=== PATIENT | female | born 1985 | race Caucasian/White ===

== ENCOUNTER 2018-03-20 07:55 | Inpatient (IN) ==
[2018-03-20] MEDS ORDERED: CALCIUM CARBONATE 500 MG (TUMS) CHEWABLE TABLET PO PRN (09:46)
[2018-03-20] MEDS ORDERED: ONDANSETRON 4 MG/2 ML VIAL IVP PRN (09:46)
[2018-03-20] MEDS ORDERED: LIDOCAINE W/ SODIUM BICARB 0.5 ML SYR SUBD PRN (09:46)
[2018-03-20] MEDS ORDERED: DOCUSATE 100 MG CAPSULE PO PRN (09:46)
[2018-03-20] MEDS ORDERED: ACETAMINOPHEN 325 MG TABLET PO PRN (09:46)
[2018-03-20 10:58] LABS: BASOPHILS # (AUTO) 0.02 10*3/UL; BASOPHILS % (AUTO) 0.4 % (0-1); EOSINOPHILS # (AUTO) 0.23 10*3/UL; EOSINOPHILS % (AUTO) 4.4 % (0-8); Hematocrit [HCT] 46.9 % (37.0-47.0); Hemoglobin [HGB] 15.7 g/dL (12.0-16.0); LYMPHOCYTES # (AUTO) 1.48 10*3/uL; MEAN CORPUSCULAR HEMOGLOBIN 31.9 PG (27-31); MEAN CORPUSCULAR HGB CONC 33.5 g/dL (33-37); MEAN CORPUSCULAR VOLUME 95.3 FL (81-99); MEAN PLATELET VOLUME 10.3 FL (7.4-12.2); MONOCYTES # (AUTO) 0.41 10*3/UL (0.3-0.8); MONOCYTES % (AUTO) 7.8 % (5-15); NEUTROPHILS # (AUTO) 3.11 10*3/UL; NEUTROPHILS % (AUTO) 59.2 % (50-80); RED BLOOD COUNT 4.92 10^6/uL (4.20-5.40)
[2018-03-20] MEDS: D5-1/2NS + 20mEq KCL 1,000 ML PRIMARY IV SCH ×2 (11:03→19:29)
[2018-03-20] MEDS: HYDROmorphone 2 MG/1 ML IVP PRN ×3 (11:08→21:29)
[2018-03-20 11:09] LABS: BLOOD UREA NITROGEN 10 mg/dL (7-22); BUN/CREATININE RATIO 14.28 (6-20); SERUM ALBUMIN 4.6 g/dL (3.5-4.8)
[2018-03-20 11:11] LABS: PLATELET MORPHOLOGY COMMENT NORMAL MORPHOLOGY (NORM); RBC MORPHOLOGY COMMENT NORMAL MORPHOLOGY (NORM); WBC MORPHOLOGY COMMENT NORMAL MORPHOLOGY (NORM)
--- NOTE | 2018-03-20 12:18 | PDOC ---
HPI - History of Present Illness Date of Service: 03/20/18 Time of Service: 12:12 Chief Complaint: Abdominal pain History of Present Illness: This very pleasant 32-year-old female who is residing in the shelter in [place], [place], who is referred to us from Dr. Carey, with a diagnosis of pancreatitis. The patient reports to me that she started experiencing abdominal pain when she was in [facility] about 5-7 months ago or so. She stated that episodes were intermittent and that her pain did not last very long. She denied any fever. She has intermittent constipation and diarrhea with this. Some nausea but no vomiting. She states that her symptoms are becoming more frequent and over the last few days she was seen in the [facility]. She states that she was given a couple of white pills and that seemed to help her feel better. She was then apparently found doubled over on the floor in writing pain. Laboratory workup done in [place] showed an ALT and AST in the 400s. She had a total bilirubin that was elevated and a lipase that was over 2000. There were no imaging studies done. The patient was transferred to us for further care. On repeat labs here lipase appears normal now but ALT and AST are still slightly elevated. Total bilirubin does appear normal. She does not drink alcohol and denies any drug use. She still has her gallbladder. She states that the pain does radiate around her back to just beneath her shoulder blade on the right. She is not sure if there is any association with meals or not. She stated that she stopped Celexa 2 weeks ago. Past Medical History Medical History: 1. Depression, recently stopped Celexa Surgical History: 1. Tubal ligation. 2. D&C. 3. Tonsillectomy and adenoidectomy Pertinent Family History: Patient is adopted but she thinks her biologic father might have had diabetes. Past Social History: Mr. pitt. Does not drink alcohol. Denies drug use. Currently in shelter in [place], [place]. She states that she is and has 3 healthy children. Tobacco Use: Former Smoker In the Past 12 Months, Have Used or Abuse Any of the Following Substance: Methamphetamines (Apparently a history of methamphetamine abuse) Alcohol Use: None Medication / Allergies Home Medications: Home Medications 3 Medication Instructions Recorded Confirmed Type NK 03/20/18 03/20/18 History Allergies/Adverse Reactions: Allergies 3 Allergy/AdvReac Type Severity Reaction Status Date / Time No Known Allergies Allergy Unverified 03/20/18 12:17 Review of Systems - Review of Systems All Systems: Reviewed & No Additional Complaints Except as Stated (I did a 12 point review systems and it is negative other than that discussed in history of present illness.) Exam - Vitals Vital Signs: Vital Signs Temperature 98.6 F Temperature Source Oral Pulse Rate [Pulse Oximeter] 91 Respiratory Rate 20 Blood Pressure [Left Arm] 120/78 Pulse Ox 93 Oxygen Delivery Method Room Air Height 5 ft Weight 171 lb 6.4 oz - General General Appearance: No Acute Distress, Cooperative - Head Head Exam: Normal Inspection, Normocephalic, Atraumatic - Eye Eye Exam: POSITIVE: No Scleral Icterus - ENT ENT Exam: POSITIVE: Mucous Membranes Moist - Neck Neck Exam: Normal Inspection, No Tenderness, No Lymphadenopathy, No Thyromegaly , JVP is not Raised - Respiratory Respiratory Exam: POSITIVE: Clear to Auscultation - Bilaterally, Breathing Non Labored, Normal to Percussion and Palpation - Cardiovascular Cardiovascular Exam: POSITIVE: RRR, No Murmur, No Clicks, No Gallops, No Rubs, No JVD - GI/Abdominal GI/Abdominal Exam: POSITIVE: Normal Bowel Sounds, Non Distended, Soft Additional GI/Abdominal Exam Details: She does voice some tenderness in the right upper quadrant and midepigastric region. - Rectal Rectal Exam: POSITIVE: Deferred - External Exam: POSITIVE: Deferred Exam: POSITIVE: Deferred - Extremities Extremities Exam: POSITIVE: No Clubbing Present, No Edema Present, No Cyanosis Present - Back Back Exam: POSITIVE: No CVA Tenderness - Neurological Neurological Exam: POSITIVE: Alert, Oriented x 3, Normal Gait, No Facial Droop, Speech Intact / Clear, Moves All Extremities Equally - Psychiatric Psychiatric Exam: POSITIVE: Normal Affect, Normal Mood Results - Labs CBC and BMP: 03/20/18 10:30 03/20/18 10:50 Additional Lab Results: Laboratory Results 03/20/18 03/20/18 03/20/18 Range/Units 10:30 10:50 10:50 WBC 5.25 (4.8-10.8) 10^3/uL RBC 4.92 (4.20-5.40) 10^6/uL Hgb 15.7 (12.0-16.0) g/dL Hct 46.9 (37.0-47.0) % MCV 95.3 (81-99) FL MCH 31.9 H (27-31) PG MCHC 33.5 (33-37) g/dL RDW Std Deviation 42.2 (39-50) fL RDW Coeff of Bandar 12.4 (11.5-14.5) % Plt Count 256 (140-350) 10*3/uL MPV 10.3 (7.4-12.2) FL Immature Gran % (Auto) 0 (0-5) % Neut % (Auto) 59.2 (50-80) % Lymph % (Auto) 28.2 (10-50) % [place] % (Auto) 7.8 (5-15) % Eos % (Auto) 4.4 (0-8) % Baso % (Auto) 0.4 (0-1) % Immature Gran # (Auto) 0 10*3/UL Neut # (Auto) 3.11 10*3/UL Lymph # (Auto) 1.48 10*3/uL [place] # (Auto) 0.41 (0.3-0.8) 10*3/UL Eos # (Auto) 0.23 10*3/UL Baso # (Auto) 0.02 10*3/UL WBC Morphology Comment Normal morphology (NORM) Plt Morphology Comment Normal morphology (NORM) RBC Morph Comment Normal morphology (NORM) PT 10.2 (9.7-11.4) secs INR 0.99 (0.00-5.90) N/A Sodium 144 (135-145) meq/L Potassium 4.2 (3.8-5.2) meq/L Chloride 111 (98-112) meq/L Carbon Dioxide 25 (23-33) meq/L Anion Gap 8 (5-20) BUN 10 (7-22) mg/dL Creatinine 0.7 (0.50-1.20) mg/dL Estimated GFR > 60 (>60 ml/min/1.73m(2)) BUN/Creatinine Ratio 14.28 (6-20) Glucose 104 (78-110) mg/dL Calculated Osmolality 296.0 H (267-292) mOsm/kg Calcium 9.3 (8.7-10.7) mg/dL Total Bilirubin 0.3 (0.3-1.2) mg/dL AST 90 H (8-39) IU/L ALT 288 H (9-52) IU/L Alkaline Phosphatase 77 (38-126) IU/L Total Protein 7.6 (6.1-8.0) g/dL Albumin 4.6 (3.5-4.8) g/dL Globulin 3.0 (2.50-4.10) g/dL Albumin/Globulin Ratio 1.50 (1.3-2.0) mg/g Lipase (23-300) IU/L 03/20/18 Range/Units 10:50 WBC (4.8-10.8) 10^3/uL RBC (4.20-5.40) 10^6/uL Hgb (12.0-16.0) g/dL Hct (37.0-47.0) % MCV (81-99) FL MCH (27-31) PG MCHC (33-37) g/dL RDW Std Deviation (39-50) fL RDW Coeff of Bandar (11.5-14.5) % Plt Count (140-350) 10*3/uL MPV (7.4-12.2) FL Immature Gran % (Auto) (0-5) % Neut % (Auto) (50-80) % Lymph % (Auto) (10-50) % [place] % (Auto) (5-15) % Eos % (Auto) (0-8) % Baso % (Auto) (0-1) % Immature Gran # (Auto) 10*3/UL Neut # (Auto) 10*3/UL Lymph # (Auto) 10*3/uL [place] # (Auto) (0.3-0.8) 10*3/UL Eos # (Auto) 10*3/UL Baso # (Auto) 10*3/UL WBC Morphology Comment (NORM) Plt Morphology Comment (NORM) RBC Morph Comment (NORM) PT (9.7-11.4) secs INR (0.00-5.90) N/A Sodium (135-145) meq/L Potassium (3.8-5.2) meq/L Chloride (98-112) meq/L Carbon Dioxide (23-33) meq/L Anion Gap (5-20) BUN (7-22) mg/dL Creatinine (0.50-1.20) mg/dL Estimated GFR (>60 ml/min/1.73m(2)) BUN/Creatinine Ratio (6-20) Glucose (78-110) mg/dL Calculated Osmolality (267-292) mOsm/kg Calcium (8.7-10.7) mg/dL Total Bilirubin (0.3-1.2) mg/dL AST (8-39) IU/L ALT (9-52) IU/L Alkaline Phosphatase (38-126) IU/L Total Protein (6.1-8.0) g/dL Albumin (3.5-4.8) g/dL Globulin (2.50-4.10) g/dL Albumin/Globulin Ratio (1.3-2.0) mg/g Lipase 231 (23-300) IU/L In [place], the patient had a lipase of 2321, an alkaline phosphatase of 66, a total bilirubin of 1.2, a lactose dehydrogenase of 499, an AST of 481, and ALT is 314, and a gamma GTP of 98. Her cholesterol panel was normal. Creatinine was normal. White blood cell count was normal. Thyroid functions were normal. - Imaging Status: Image Pending (I have ordered an ultrasound of the abdomen and also a CT scan of the abdomen and pelvis with contrast to look for pancreatitis and possible gallstone or common bile duct elevation.) Assessment and Plan - Patient Problems (1) Pancreatitis Current Visit: Yes Status: Acute Code(s): K85.90 - Acute pancreatitis without necrosis or infection, unspecified Qualifiers: Chronicity: acute Pancreatitis type: biliary Acute pancreatitis complication: unspecified Qualified Code(s): K85.10 - Biliary acute pancreatitis without necrosis or infection (2) Psychiatric disorder Current Visit: Yes Status: Acute Code(s): F99 - Mental disorder, not otherwise specified - Assessment / Plan Additional Assessment/Plan Details: Admit the patient. Keep nothing by mouth. IV fluids, IV narcotics for pain and antiemetics. I think ultimately that this is probably a gallstone pancreatitis. Certainly an SSRI could cause pancreatitis but it is not something that I typically see in my practice so, things being common and with elevated liver enzymes, I think that this is more likely related to gallstone pancreatitis. We'll get an ultrasound to look for gallstones and also, common bile duct dilation. A CT scan of the abdomen and pelvis with contrast to look for pancreatitis physically as well as biochemically. Check labs in a.m., and if lipase still remains normal, then may need to consider surgery consult to evaluate further about possible cholecystectomy. If there is any evidence of elevated common bile duct dilation, then we would need to consider transfer to facility for possible ERCP but the timing of that could be related to how lipase looks, patient's symptoms, other lab and diagnostic values. Certainly based on lab profile done yesterday in [place] and lab profile now, it would appear that there could've been a stone that passed already. If a cholecystectomy needs to be done, we need to discuss with surgery to consider doing an intraoperative cholangiogram as well. Discussed with patient and law enforcement agent present in detail.
--- NOTE | 2018-03-20 15:37 | DI ---
US Abdomen Complete,03/20/2018 9:48 AM: Clinical History: Pancreatitis Previous Exam: None available. Findings: Multiple grayscale and color Doppler sonographic images are obtained through the abdomen, and demonst rate normal hepatic parenchyma. The gallbladder contains multiple shadowing stones. Gallbladder wall is thickened measuring 5 mm. The re is no pericholecystic fluid. The pancreas is not well seen. Right kidney measures 9.3 cm in length without hydronephrosis nor nephrolithiasis. The left kidney is also normal measuring 9.6 cm in length. The spleen is within normal limits. Impression: 1. Cholelithiasis. 2. Pancreas not well seen due to overlying shadowing from gallstones. Cannot rule out the possibility of ductal dilation.
--- NOTE | 2018-03-20 15:41 | DI ---
CT Abdomen/Pelvis W Contrast,03/20/2018 9:49 AM: Clinical History: Pancreatitis, suspected gallstone pancreatitis. Previous Exam: None at this facility. Findings: Multiple helically acquired CT images are obtained through the abdomen and pelvis following the intra venous administration of contrast (75 cc of Isovue 300. The lung bases are clear. Comment: The patient stated she is . Potential risks to the fetus w ere explained to the patient. She consented to proceed with the exam. Additional shielding precaution s were utilized. Is unremarkable. Multiple gallstones are seen within the gallbladder. The pancreas is grossly normal without evidence of ductal dilation. The spleen, adrenals and kidneys are also unremarkable. The appendix is normal. The urinary bladder is unremarkable. The uterus is enlarged and irregular. Th e left kidney is within normal limits for patient's age. There is no peripancreatic fat stranding. There is no evidence of abscess nor pseudocyst. Impression: Cholelithiasis otherwise unremarkable.
[2018-03-20] MEDS ORDERED: Ertapenem Inj 1 GM in Sodium Chloride 0.9% 100 ML IV SCH (18:00)
[2018-03-20] MEDS ORDERED: metroNIDAZOLE 500mg (Premix) 500 MG/100 ML BAG IV SCH (18:00)
[2018-03-20] MEDS ORDERED: cefTRIAXone Inj 2 GM in Sodium Chloride 0.9% 100 ML IV SCH (18:00)
[2018-03-21] MEDS: D5-1/2NS + 20mEq KCL 1,000 ML PRIMARY IV SCH (03:13)
[2018-03-21 03:39] LABS: BASOPHILS # (AUTO) 0.02 10*3/UL; BASOPHILS % (AUTO) 0.4 % (0-1); EOSINOPHILS # (AUTO) 0.24 10*3/UL; EOSINOPHILS % (AUTO) 5.2 % (0-8); Hematocrit [HCT] 40.5 % (37.0-47.0); Hemoglobin [HGB] 13.4 g/dL (12.0-16.0); LYMPHOCYTES # (AUTO) 1.59 10*3/uL; MEAN CORPUSCULAR HGB CONC 33.1 g/dL (33-37); MEAN CORPUSCULAR VOLUME 96.7 FL (81-99); MEAN PLATELET VOLUME 10.5 FL (7.4-12.2); MONOCYTES # (AUTO) 0.28 10*3/UL (0.3-0.8); MONOCYTES % (AUTO) 6.1 % (5-15); NEUTROPHILS # (AUTO) 2.46 10*3/UL; NEUTROPHILS % (AUTO) 53.5 % (50-80); PLATELET MORPHOLOGY COMMENT NORMAL MORPHOLOGY (NORM); RBC MORPHOLOGY COMMENT NORMAL MORPHOLOGY (NORM); RED BLOOD COUNT 4.19 10^6/uL (4.20-5.40); WBC MORPHOLOGY COMMENT NORMAL MORPHOLOGY (NORM)
[2018-03-21 06:14] LABS: BLOOD UREA NITROGEN 5 mg/dL (7-22); BUN/CREATININE RATIO 8.33 (6-20); LIPASE 65 IU/L (23-300); SERUM ALBUMIN 3.4 g/dL (3.5-4.8)
[2018-03-21] MEDS: HYDROmorphone 2 MG/1 ML IVP PRN (07:25)
--- NOTE | 2018-03-21 09:27 | CONSULT ---
Consult Note - Consult Consult Date: 03/21/18 Reason for Consult: PreOp Consulation : General Surgery Requesting Physician: Dr. Ibrahim Primary Care Provider: NONE NONE - History of Present Illness History of Present Illness: The patient is a 32-year-old female who is an incarcerated prisoner at [facility]. I am asked to see her for gallstones and recent gallstone pancreatitis. She reports a 5-7 month history of intermittent right upper quadrant abdominal pain. The pain radiates around to her back. She has intermittent nausea and vomiting. She feels gassy and bloated. She has fatty food intolerance. Apparently on 03/18/2018, she was found duobled over in pain. Some lab work was drawn but the results were not available until yesterday. She felt like she was having birthing contractions in her right upper quadrant. Her lipase was greater than 2000. Her AST and ALT were both in the 400 range. Her bilirubin was 1.2. Her white count was normal. Her alkaline phosphatase was normal. On Saturday she saw the physician [facility]. The lab work was not back. She was feeling better. Yesterday morning the lab work returned and she was transferred here for evaluation. Since being here she had a CT scan of her abdomen and pelvis. It shows multiple gallstones. No evidence of pancreatitis or peripancreatic stranding. Subsequent ultrasound showed multiple gallstones. There is some thickening of the gallbladder wall at 5 mm. She was placed on antibiotics. I was called last evening to see her this morning for the same. Her lipase is normal this morning. Her AST and ALT are slightly elevated. Her bilirubin is normal. Her white count is normal. Her alkaline phosphatase is normal. This is all consistent with resolving gallstone pancreatitis. I believe she passed a gallstone. This morning she is a little sore. She is thirsty. She is back to about her baseline. She reports these attacks of biliary colic are happening more frequently and becoming more severe. The options as I see them are to send her back to senior care and schedule this as an outpatient or go ahead and proceed with cholecystectomy today. I spoke with the senior care nurse and she is checking with corporate to see which way to proceed. She will let me know and the final decision regarding surgery will be made following approval. Review of Systems - Gastrointestinal Gastrointestinal / Abdominal: REPORTS: Nausea, Vomiting, Abdominal Pain, Bloating, See HPI Past Medical History Medical History: 1. Depression, recently stopped Celexa Surgical History: 1. Tubal ligation. 2. D&C. 3. Tonsillectomy and adenoidectomy Pertinent Family History: Patient is adopted but she thinks her biologic father might have had diabetes. Past Social History: Mr. ramirez Does not drink alcohol. Denies drug use. Currently in senior care in [place], [place]. She states that she is and has 3 healthy children. Tobacco Use: Former Smoker In the Past 12 Months, Have Used or Abuse Any of the Following Substance: Methamphetamines (Apparently a history of methamphetamine abuse) Alcohol Use: None Medication / Allergies Home Medications: Home Medications 3 Medication Instructions Recorded Confirmed Type NK 03/20/18 03/20/18 History Allergies/Adverse Reactions: Allergies 3 Allergy/AdvReac Type Severity Reaction Status Date / Time No Known Allergies Allergy Unverified 03/20/18 12:17 Results - Labs CBC and BMP: 03/21/18 03:20 03/21/18 03:20 - Imaging Status: Image Reviewed by Me, Report Reviewed by Me Exam - Vitals Vital Signs: Vital Signs Temperature 98.1 F Temperature Source Temporal Artery Scan Pulse Rate [Pulse Oximeter] 82 Respiratory Rate 18 Blood Pressure [Left Arm] 100/61 Pulse Ox 98 Oxygen Flow Rate 1 Oxygen Delivery Method Room Air Height 5 ft Weight 176 lb 6.4 oz - General General Appearance: No Acute Distress, Cooperative - Respiratory Respiratory Exam: POSITIVE: Clear to Auscultation - Bilaterally, Breathing Non Labored - Cardiovascular Cardiovascular Exam: POSITIVE: RRR, No Murmur - GI/Abdominal GI/Abdominal Exam: POSITIVE: Normal Bowel Sounds, Non Distended, Soft, Positive for RUQ Pain (Mild, to deep palpation.) - Neurological Neurological Exam: POSITIVE: Alert, Oriented x 3 - Psychiatric Psychiatric Exam: POSITIVE: Normal Affect, Normal Mood Assessment and Plan - Patient Problems (1) Cholelithiasis with chronic cholecystitis Current Visit: Yes Status: Acute Priority: High Onset Date: Unknown Comment: Patient has had problems for the last 5-[address] and ultrasound both showed gallstones. There is some gallbladder wall thickening. She has been given appropriate antibiotics. Patient needs a laparoscopic cholecystectomy with intraoperative cholangiogram. The possibility of a postoperative ERCP has been discussed.The procedure has been discussed with the patient in complete yet simple terms including benefits, risks, and alternatives. All questions have been answered. Informed consent has been obtained. I have checked with the senior care for authorization. They will decide whether to proceed today or bring her back as an outpatient in the near future. Either way would be appropriate at this time. Code(s): K80.10 - Calculus of gallbladder with chronic cholecystitis without obstruction (2) Acute gallstone pancreatitis Current Visit: Yes Status: Acute Priority: High Onset Date: 03/18/18 Comment: No evidence of acute pancreatitis on CT scan. Labs have essentially returned to normal with some mild elevation of AST and ALT. Her gallstone pancreatitis has resolved at this time. There is some minimal risk of reactivating her pancreatitis with intraoperative cholangiogram. If we proceed with surgery today would recommend observation overnight, recheck her labs in the morning, and if they're fine she can return to the senior care for follow-up care. Code(s): K85.10 - Biliary acute pancreatitis without necrosis or infection
[2018-03-21] MEDS ORDERED: LIDOCAINE W/ SODIUM BICARB 0.5 ML SYR SUBD PRN (09:49)
[2018-03-21] MEDS ORDERED: Nasal Sanitizer POPSWAB ampule 3 AMP (Nozin) PREOP DOSE ENOS SCH (10:00)
[2018-03-21] MEDS ORDERED: Lactated Ringers 1,000 ML PRIMARY IV SCH ×2 (10:00→16:30)
--- NOTE | 2018-03-21 13:10 | PDOC(PROG) ---
Date of Service: 03/21/18 Time of Service: 12:10 Interval History: Feels much better. I spoke with Dr. Louis whom we consulted. He plans to take patient down for cholecystectomy. He got the approval from the detention to do so. I would agree with this. No nausea or vomiting today and no chest pain. Breathing comfortably. Objective : Data - Labs CBC and BMP: 03/21/18 03:20 03/21/18 03:20 Additional Lab Results: 03/21/18 03:20 Total Bilirubin 0.3 AST 45 H ALT 192 H Alkaline Phosphatase 58 Total Protein 6.3 Albumin 3.4 L Globulin 2.9 Lipase 65 - Imaging CT Scan Status: Report Reviewed by Me (CT scan of abdomen and pelvis showed peripancreatic fluid but no changes in the pancreas.) Ultrasound Status: Report Reviewed by Me (The ultrasound of the gallbladder and abdomen showed gallbladder wall thickening a 5 mm, cholelithiasis, but the pancreas was not well visualized. It is unclear if there is any common bile duct obstruction.) Objective : Exam - General General Appearance: No Acute Distress, Cooperative Additional General Exam Details: Vital Signs - Last Taken Temperature 99.5 F 03/21/18 13:00 Pulse Rate 79 03/21/18 13:00 Respiratory Rate 16 03/21/18 13:00 Blood Pressure 108/61 03/21/18 13:00 Pulse Ox 100 03/21/18 13:00 - Eye Eye Exam: No Scleral Icterus - ENT ENT Exam: Mucous Membranes Moist - Respiratory Respiratory Exam: Clear to Auscultation - Bilaterally, Breathing Non Labored - Cardiovascular Cardiovascular Exam: RRR, No Murmur, No Clicks, No Gallops, No Rubs, No JVD - GI/Abdominal GI/Abdominal Exam: Normal Bowel Sounds, Non Tender, Non Distended, Soft - Extremities Extremities Exam: No Clubbing Present, No Edema Present, No Cyanosis Present - Neurological Neurological Exam: Alert, Oriented x 3, No Facial Droop, Speech Intact / Clear, Moves All Extremities Equally Assessment and Plan - Patient Problems (1) Pancreatitis Current Visit: Yes Status: Acute Code(s): K85.90 - Acute pancreatitis without necrosis or infection, unspecified Qualifiers: Chronicity: acute Pancreatitis type: biliary Acute pancreatitis complication: unspecified Qualified Code(s): K85.10 - Biliary acute pancreatitis without necrosis or infection (2) Cholelithiasis with chronic cholecystitis Current Visit: Yes Status: Acute Priority: High Onset Date: Unknown Code (s): K80.10 - Calculus of gallbladder with chronic cholecystitis without obstruction Qualifiers: Cholelithiasis location: gallbladder Biliary obstruction: without biliary obstruction Qualified Code(s): K80.10 - Calculus of gallbladder with chronic cholecystitis without obstruction (3) Psychiatric disorder Current Visit: Yes Status: Acute Code(s): F99 - Mental disorder, not otherwise specified - Assessment / Plan Additional Assessment/Plan Details: I agree with Dr. Louis, I do think the patient needs cholecystectomy. From hospitalist perspective, the patient can proceed to the operating room with postoperative risk stratification as appropriate. We had a dose of Invanz given yesterday, particularly with the gallbladder wall thickening. She was afebrile and white cell count was normal, but with gallbladder wall thickening we have to assume that this was likely acute cholecystitis or possible chronic cholecystitis. We'll wait to see surgical report, but hopeful to stop antibiotics postoperatively. Labs in a.m. In speaking with Dr. Louis, I agree that an intraoperative cholangiogram should be done and he plans on doing this. If there is any evidence of obstruction we' ll have to arrange for a postoperative ERCP. From the pancreatitis standpoint, this appears resolved now. I think postoperatively when okay with surgery, we should advance the diet.
[2018-03-21] MEDS ORDERED: ROCURONIUM 10 MG/1 ML - 5 ML VIAL IVP ONE (13:20)
[2018-03-21] MEDS ORDERED: KETAMINE 100 MG/1 ML - 5 ML ONE (13:21)
[2018-03-21] MEDS ORDERED: MIDAZOLAM 5 MG/1 ML ONE (13:21)
[2018-03-21] MEDS ORDERED: fentaNYL Inj 100 MCG/2 ML VIAL ONE ×3 (13:21→15:33)
[2018-03-21] MEDS ORDERED: LIDOCAINE MPF 2% - 5 ML (20 MG/1 ML) ONE (13:24)
[2018-03-21] MEDS ORDERED: DEXAMETHASONE PF 10 MG/1 ML VIAL ONE (13:29)
[2018-03-21] MEDS ORDERED: KETOROLAC 30 MG/1 ML VIAL ONE (13:29)
[2018-03-21] MEDS ORDERED: Iothalamate Meglumine 30 ML VIAL IV ONE (14:13)
[2018-03-21] MEDS ORDERED: BUPIVACAINE 0.25% W/ EPI - 10 ML VIAL ONE (14:13)
[2018-03-21] MEDS ORDERED: Sodium Chloride 0.9% vial 50 ML ONE (14:14)
[2018-03-21] MEDS ORDERED: Sodium Chloride 0.9% 0 ML PRIMARY IV ONE (14:30)
[2018-03-21] MEDS ORDERED: ONDANSETRON 4 MG/2 ML VIAL ONE (14:51)
[2018-03-21] MEDS ORDERED: Lactated Ringers 1,000 ML PRIMARY IV ONE (14:51)
[2018-03-21] MEDS ORDERED: PROPOFOL 10 MG/1 ML (200 MG/20 ML) VIAL IV ONE (14:56)
[2018-03-21] MEDS ORDERED: Lactated Ringers 2,000 ML PRIMARY IV ONE (15:14)
--- NOTE | 2018-03-21 15:53 | DCSUMMARY ---
Hospitalization Summary Admit Date: 03/20/2018 Discharge Date: 03/21/18 Primary Diagnosis:: cholecystitis with common bile duct obstruction Secondary Diagnosis:: Status post laparoscopic cholecystectomy Hospital Course: This very pleasant 32-year-old female who came in with acute gallstone pancreatitis. She was transferred from the [facility]. When she arrived here , her labs originally had been done on 03/18/2018 and her lipase of over 2000 had normalized by admission here yesterday. Her symptoms included nausea, vomiting, abdominal pain. She was admitted, placed on IV fluids, kept nothing by mouth, I got an ultrasound and a CT scan which showed gallbladder wall thickening. I consulted surgery and we placed her on Invanz. Her lipase was normal today and she went for laparoscopic cholecystectomy. She had an intraoperative cholangiogram. She was found to have stones and a dilated common bile duct and will now need to go for ERCP. Dr. Louis has graciously already made calls for referral of this speaking to the hospitalist and the electrical project manager in [place], [place], for transfer. Postoperatively, the patient is otherwise stabilized. She had minimal symptoms today. Her only other medical history is that she has a psychiatric disorder which was not an issue during the hospital stay. Assessment and Plan: 1. As per discharge assessments noted 2. Disposition: Patient will be discharged to [facility] 3. Condition on discharge, stable and improved, but due to common bile duct obstruction and stone presence, her condition certainly could deteriorate but she has been stabilized to the best of our ability to do so and I deemed her stable for transport. 4. Diet: Nothing by mouth 5. Activities: As per [facility] 6. Follow-Up: 1. Dr. Carey post hospital stay back at the [facility] 2. 7. Medications at the Time of Discharge: Active Medications Generic Name Dose Route Start Last Admin Trade Name Freq PRN Reason Stop Dose Admin Lactated Ringer's 1,000 mls @ 100 mls/hr 03/21/18 10:00 03/21/18 10:55 Lr PRIMARY IV 100 mls/hr .Q10H AURA Administration Lidocaine HCl 0.5 ml 03/21/18 09:49 Lidocaine Buffered Inj SUBD ONCE PRN IV Starts She has been on Dilaudid, Zofran for pain here. Tylenol when necessary. All these medications were when necessary. Exam - Vitals Vital Signs: Vital Signs Temperature 99.5 F Temperature Source Temporal Artery Scan Pulse Rate [Pulse Oximeter] 75 Pulse Rate 79 Respiratory Rate 16 Blood Pressure [Left Arm] 107/65 Blood Pressure 108/61 Pulse Ox 100 Oxygen Flow Rate ra Oxygen Delivery Method Room Air Height 5 ft Weight 171 lb - General General Appearance: No Acute Distress, Cooperative - Eye Eye Exam: POSITIVE: No Scleral Icterus - ENT ENT Exam: POSITIVE: Mucous Membranes Moist - Respiratory Respiratory Exam: POSITIVE: Clear to Auscultation - Bilaterally, Breathing Non Labored - Cardiovascular Cardiovascular Exam: POSITIVE: RRR, No Murmur, No Clicks, No Gallops, No Rubs, No JVD - GI/Abdominal GI/Abdominal Exam: POSITIVE: Normal Bowel Sounds, Non Tender, Non Distended, Soft - Extremities Extremities Exam: POSITIVE: No Clubbing Present, No Edema Present, No Cyanosis Present - Neurological Neurological Exam: POSITIVE: Alert, Oriented x 3, No Facial Droop, Speech Intact / Clear, Moves All Extremities Equally Data Peritnent Studies: Laboratory Results 03/21/18 03/21/18 Range/Units 03:20 03:20 WBC 4.60 L (4.8-10.8) 10^3/uL RBC 4.19 L (4.20-5.40) 10^6/uL Hgb 13.4 (12.0-16.0) g/dL Hct 40.5 (37.0-47.0) % MCV 96.7 (81-99) FL MCH 32.0 H (27-31) PG MCHC 33.1 (33-37) g/dL RDW Std Deviation 41.0 (39-50) fL RDW Coeff of Bandar 12.1 (11.5-14.5) % Plt Count 242 (140-350) 10*3/uL MPV 10.5 (7.4-12.2) FL Immature Gran % (Auto) 0.2 (0-5) % Neut % (Auto) 53.5 (50-80) % Lymph % (Auto) 34.6 (10-50) % Cocke % (Auto) 6.1 (5-15) % Eos % (Auto) 5.2 (0-8) % Baso % (Auto) 0.4 (0-1) % Immature Gran # (Auto) 0.01 10*3/UL Neut # (Auto) 2.46 10*3/UL Lymph # (Auto) 1.59 10*3/uL Cocke # (Auto) 0.28 L (0.3-0.8) 10*3/UL Eos # (Auto) 0.24 10*3/UL Baso # (Auto) 0.02 10*3/UL WBC Morphology Comment Normal morphology (NORM) Plt Morphology Comment Normal morphology (NORM) RBC Morph Comment Normal morphology (NORM) Sodium 140 (135-145) meq/L Potassium 4.1 (3.8-5.2) meq/L Chloride 112 (98-112) meq/L Carbon Dioxide 23 (23-33) meq/L Anion Gap 5 (5-20) BUN 5 L (7-22) mg/dL Creatinine 0.6 (0.50-1.20) mg/dL Estimated GFR > 60 (>60 ml/min/1.73m(2)) BUN/Creatinine Ratio 8.33 (6-20) Glucose 114 H (78-110) mg/dL Calculated Osmolality 287.0 (267-292) mOsm/kg Calcium 8.3 L (8.7-10.7) mg/dL Total Bilirubin 0.3 (0.3-1.2) mg/dL AST 45 H (8-39) IU/L ALT 192 H (9-52) IU/L Alkaline Phosphatase 58 (38-126) IU/L Total Protein 6.3 (6.1-8.0) g/dL Albumin 3.4 L (3.5-4.8) g/dL Globulin 2.9 (2.50-4.10) g/dL Albumin/Globulin Ratio 1.10 L (1.3-2.0) mg/g Lipase 65 (23-300) IU/L Procedures: See Dr. Louis's notes regarding laparoscopic cholecystectomy. Patient Problems - Patient Problem List (1) Choledocholithiasis with acute cholecystitis with obstruction Current Visit: Yes Status: Acute Comment: Common bile duct obstruction confirmed with intraoperative cholangiogram. Stones present. Common bile duct is dilated. Patient will need ERCP. Code(s): K80.43 - Calculus of bile duct with acute cholecystitis with obstruction Category: Medical (2) Pancreatitis Current Visit: Yes Status: Acute Comment: This is resolved. Code(s): K85.90 - Acute pancreatitis without necrosis or infection, unspecified Qualifiers: Chronicity: acute Pancreatitis type: biliary Acute pancreatitis complication: unspecified Qualified Code(s): K85.10 - Biliary acute pancreatitis without necrosis or infection Category: Medical (3) Cholelithiasis with chronic cholecystitis Current Visit: Yes Status: Acute Onset Date: Unknown Priority: High Code (s): K80.10 - Calculus of gallbladder with chronic cholecystitis without obstruction Qualifiers: Cholelithiasis location: gallbladder Biliary obstruction: without biliary obstruction Qualified Code(s): K80.10 - Calculus of gallbladder with chronic cholecystitis without obstruction Category: Medical (4) Psychiatric disorder Current Visit: Yes Status: Acute Code(s): F99 - Mental disorder, not otherwise specified Category: Medical
--- NOTE | 2018-03-21 16:03 | CRNA.PROGR ---
Anesthesia Time - Procedure/Recovery Time Start Date: 03/21/18 End Date: 03/21/18 Anesthesia : Time In: 13:54 Anesthesia : Time Out: 15:43 Anesthesia : Total Time: 109 - Total Anesthesia Time Total Anesthesia Time (minutes): 109 - Other Weight: 77.564 kg Height: 5 ft Body Mass Index (BMI): 33.4 Physical Status: P2 Anesthesia Type: General Anesthesia : ET
--- NOTE | 2018-03-21 16:05 | CRNA.PROGR ---
Post Anesthesia Phase II - Post Anesthesia Phase II Patient Stable and Discharged To: Phase II Care Assumed By Surgeon: Grayson Louis MD Temperature: 99.5 F Pulse Rate: 79 Respiratory Rate: 16 Blood Pressure: 108/61 Pulse Ox: 100 Total Nellie Score at Discharge: 9 Post Anesthesia Discharge Criteria Met: Yes Additional Details: Needs an ERCP, so will be transfered out of here this afternoon. Condition satisfactory. for the transfer.
--- NOTE | 2018-03-21 16:12 | GEN.OPNOTE ---
Operative Note Surgery Date: 03/21/18 Preoperative Diagnosis: Cholelithiasis with chronic cholecystitis. Recent pancreatitis. Postoperative Diagnosis: Same. Choledocholithiasis. Dilated common bile duct. Procedure: Laparoscopic cholecystectomy with intraoperative cholangiogram. Surgeon: Grayson Louis MD Contracts Director: Justino Moreira MD Anesthesia Provider: Anuja Sullivan CRNA Anesthesia Type: General Estimated Blood Loss (mL): 25 Fluids: 1400 mL of crystalloid. 30 mg of IV Toradol at the and of the procedure. Pathology: Specimen for pathologic analysis. Indications: Right upper quadrant pain and multiple gallstones. Recently elevated lipase and liver function tests havereturned to normal. She was taken for laparoscopic cholecystectomy. Findings: Gallbladder with multiple gallstones. No significant inflammation of the gallbladder wall. Intraoperative cholangiogram shows 2-3 stones in the distal common bile duct. These are approximately 5 mm in size. The common bile duct and intrahepatic ducts are dilated. There is minimal flow into the duodenum. No other significant intra-abdominal pathology. Complications: None. Operative Summary: The patient was taken to the operating room and placed on the operating table in the supine position. Following induction of general anesthetic the abdomen was prepped and draped in a sterile fashion. A surgical timeout was done. The infraumbilical scar from her tubal ligation was infiltrated with 1/4% Marcaine with epinephrine. An incision was made. The abdominal wall was elevated. A Veres needle was placed without apparent injury and a pneumoperitoneum was induced. The veres needle was withdrawn. A 10 mm trocar was placed with a Visiport. Under direct visualization and following Marcaine injection a 10 mm trocar was placed in the epigastrium and 2x5 mm trochars were placed along the costal margin. The gallbladder was grasped and elevated. Blunt dissection was used to free the cystic duct. A clip was placed along the neck of the gallbladder. A hole was made in the side wall of the cystic duct. A significant amount of bile flowed out of the hole. A Katie cholangiocatheter was inserted. Intraoperative cholangiogram was taken and showed several stones in the distal common bile duct as well as a dilated common bile duct. The Katie catheter was withdrawn. A single stone was milked out of the cystic duct. 2 clips were placed on the distal cystic duct and the duct was divided. The cystic artery was isolated. 2 clips were placed proximally and one distally and the artery was divided. The gallbladder was taken from the hepatic bed using electrocautery. Hemostasis was assured. Appropriate irrigation and suctioning were performed. Final check for hemostasis was made. 5 mL of Marcaine was placed in the gallbladder fossa and 5 over the dome of the liver. The laparoscope was moved to the epigastric port. The gallbladder was grasped with a large grasper and brought up to the umbilical trocar site. The fascial defect at the umbilicus was increased in size. The gallbladder was brought out through the trocar site without difficulty. The fascial defect at the umbilicus was closed with a running 0 Vicryl. A final check for hemostasis was made. The CO2 was burped from the abdominal cavity. The trochars were removed under direct visualization. No other trocar sites required fascial closure. The skin wounds were closed with surgical lynn followed by appropriate dressings. Patient tolerated the procedure well without complication. Patient was taken to the recovery room in stable condition. All counts were correct. Plans are being made to transfer the patient to [facility]. She will need an ERCP to clear her common bile duct. I spoke to the nurse at the long-term who spoke to the clinic director. She has called me back and approved to transfer to [facility] for ERCP. I have spoken to the hospitalist at [facility]. I also spoke the take away worker wireless communications engineer this weekend. They have accepted the patient in transfer for care and an ERCP. The patient will need the lynn out in approximately 7-10 days postoperatively. Procedure Codes - Surgical Procedures Primary Surgical Procedure: 54571 : Cholecsytectomy w/Cholangiograph
[2018-03-21] MEDS ORDERED: HYDROcodone-APAP 5 MG -325 MG TABLET PO PRN (16:22)
[2018-03-21] MEDS ORDERED: ONDANSETRON 4 MG/2 ML VIAL IVP PRN (16:22)
[2018-03-21] MEDS ORDERED: MORPHINE SULFATE 2 MG/1 ML IVP PRN (16:22)
[2018-03-21 17:13] VITALS: BP 106/69; RESP 14; TEMP 98.6; O2SAT 99
--- NOTE | 2018-03-21 18:00 | DI ---
Comparisons: None. Findings/ Impression: Fluoroscopic support was provided for a procedure performed by the General Surgery Depart ment. Multiple images were saved. The patient is status post cholecystectomy with a surgical clip in the gallbladder fossa. Intraoperative cholangiogram reveals dilatation of the intra-and extrahepatic biliary tree with filling defects likely present at the level of the ampulla. Contrast reaches the s mall bowel. These findings raise concern for a distal obstructing stone. Further evaluation with ERCP is recommended.
== END 2018-03-21 17:34 | disposition short-term general hospital (02) | DRG 417 ==
LOC: MED/SURG 09:46 → OPS 03-21 12:41
PROVIDERS: ADMIT Family Medicine; ATTEND Family Medicine